=== PATIENT | male | born 1955 | race African-American/Black ===

== ENCOUNTER 2022-08-27 23:12 | Inpatient (IN) | payer MEDICARE, MEDICAID ==
[~2022-08-27] VITALS: Ht 182.9 cm; Wt 98.0 kg
[2022-08-27] MEDS ORDERED: IOHEXOL-350 100 ML BOTTLE ONE (23:42)
[2022-08-27 23:53] LABS: BASOPHILS % 0.3 % (0.0-2.0); EOSINOPHILS % 1.4 % (0.0-5.0); HEMATOCRIT. 40.8 % (42.0-52.0); HEMOGLOBIN. 13.2 g/dL (14.0-18.0); LYMPHOCYTES % 23.5 % (20.0-50.0); MEAN CORPUSCULAR HEMOGLOBIN 27.4 pg (28.0-32.0); MEAN CORPUSCULAR VOLUME 84.8 fL (80.0-94.0); MEAN PLATELET VOLUME 11.4 fl (7.4-10.4); MONOCYTES % 7.9 % (2.0-8.0); NEUTROPHILS % 66.9 % (40.0-76.0); PLATELET 140 x1000/uL (130-400); RED BLOOD CELL COUNT 4.82 mill/uL (4.7-6.1); RED CELL DISTRIBUTION WIDTH 14.9 % (11.6-14.6)
[2022-08-28 00:02] LABS: CLARITY URINE CLEAR (CLEAR); COLOR URINE YELLOW (YELLOW); KETONES URINE NEGATIVE (NEGATIVE); LEUKOCYTE ESTERASE URINE NEGATIVE (NEGATIVE); NITRITE URINE NEGATIVE (NEGATIVE); OCCULT BLOOD URINE NEGATIVE (NEGATIVE); PH URINE 7.5 (4.5-8.0); PROTEIN URINE NEGATIVE (NEGATIVE); SPECIFIC GRAVITY URINE 1.011 (1.005-1.030); UROBILINOGEN URINE 0.2 E.U./dL (0.2-1.0)
[2022-08-28] MEDS ORDERED: ATORVASTATIN CALCIUM 40MG TABLET PO SCH (00:15)
[2022-08-28] MEDS ORDERED: ASPIRIN 325MG EC TABLET PO ONE (00:15)
[2022-08-28] MEDS ORDERED: LABETALOL HCL VIAL 20 MG/4 ML VIAL IV ONE (00:15)
[2022-08-28 00:23] LABS: CHLORIDE 110 mEq/L (98-107)
[2022-08-28] MEDS ORDERED: LABETALOL 5MG/ML SYR 20 MG/4 ML SYRINGE IV NR (00:30)
[2022-08-28] MEDS ORDERED: CLOPIDOGREL 75MG TABLET PO ONE (00:30)
[2022-08-28 00:31] LABS: ETHANOL BLOOD < 10 mg/dL
[2022-08-28 00:43] LABS: *AMPHETAMINES SCREEN URINE NEGATIVE (NEGATIVE); *BARBITURATES SCREEN URINE NEGATIVE (NEGATIVE); *BENZODIAZEPINES SCREEN URINE NEGATIVE (NEGATIVE); *COCAINE SCREEN URINE NEGATIVE (NEGATIVE); CANNABINOID URINE SCREEN PRESUMTIVE POSITIVE (NEGATIVE); METHADONE URINE SCREEN NEGATIVE (NEGATIVE); OPIATES URINE SCREEN NEGATIVE (NEGATIVE); PHENCYCLIDINE URINE SCREEN NEGATIVE (NEGATIVE)
[2022-08-28] MEDS ORDERED: NICARDIPINE 40MG/200ML PREMIX 200 ML IV PRN (01:00)
[2022-08-28 05:30] VITALS: BP 172/121
[2022-08-28] MEDS ORDERED: ONDANSETRON HCL 4MG/2ML INJ IV PRN (06:45)
[2022-08-28] MEDS ORDERED: GUAIFENESIN 200MG/10ML SUGAR FREE UDC PO PRN (06:45)
[2022-08-28] MEDS ORDERED: CLONIDINE 0.1MG TABLET PO PRN (06:45)
[2022-08-28] MEDS ORDERED: TRAMADOL 50MG TABLET PO PRN (06:45)
[2022-08-28] MEDS ORDERED: ACETAMINOPHEN 325MG TABLET PO PRN (06:45)
[2022-08-28] MEDS ORDERED: AMLODIPINE 10MG TABLET PO SCH (07:30)
[2022-08-28] MEDS ORDERED: LISINOPRIL 40MG TABLET PO SCH (07:30)
[2022-08-28] MEDS ORDERED: HYDRALAZINE HCL 100MG TABLET PO SCH (07:30)
[2022-08-28] MEDS ORDERED: MAGNESIUM/ALUMINUM HYDROXIDE/SIMETHICONE 30ML UDC PO PRN (08:30)
[2022-08-28] MEDS ORDERED: ENOXAPARIN 40MG/0.4ML SYR SUBCUT SCH (09:00)
[2022-08-28] MEDS ORDERED: ASPIRIN 81MG EC TABLET PO SCH (09:00)
[2022-08-28] MEDS ORDERED: CLOPIDOGREL 75MG TABLET PO SCH (09:00)
[2022-08-28] MEDS ORDERED: DOCUSATE SODIUM 100MG CAPSULE PO PRN (09:00)
== END 2022-08-28 12:15 | disposition left against medical advice (07) | DRG 305 ==
LOC: ER 23:12 → EDBD 23:12 → EDBEDREQ 08-28 01:03 → EDBEDREQTM 08-28 02:05 → EDBEDREQSVC 08-28 02:05 → MICUSO 08-28 02:10
PROVIDERS: ADMIT Hospitalist; ATTEND Hospitalist
DX: I16.0 Hypertensive urgency (principal); I10 Essential (primary) hypertension; J44.9 Chronic obstructive pulmonary disease, unspecified; Z91.14 Patient's other noncompliance with medication regimen; Z86.73 Personal history of transient ischemic attack (TIA), and cerebral infarction without residual deficits; Z53.29 Procedure and treatment not carried out because of patient's decision for other reasons; R29.810 Facial weakness
CPT/HCPCS: 36415; 70496; 70498; 71045; 80053; 80305; 80320; 81003; 84484; 85025; 93005; 93970; 99291; J1650; J3490; Q9967; G0480